=== PATIENT | male | born 2000 | race Caucasian/White ===

== ENCOUNTER 2020-11-06 23:15 | Inpatient (IN) | payer OTHER ==
[2020-11-06] MEDS ORDERED: BISMUTH SUBSALICYLATE 524 MG/30 ML PO PRN (23:49)
[2020-11-06] MEDS ORDERED: guaiFENesin 200 MG/10 ML 10 ML UNIT-DOSE CUPS PO PRN (23:49)
[2020-11-06] MEDS ORDERED: MAG HYDROX/AL HYDROX/SIMETH 30 ML UNIT-DOSE CUP PO PRN (23:49)
[2020-11-06] MEDS ORDERED: ACETAMINOPHEN 325 MG TABLET (FP) PO PRN ×2 (23:49)
[2020-11-06] MEDS ORDERED: ONDANSETRON *ODT* 4 MG TABLET SL PRN (23:49)
[2020-11-06] MEDS ORDERED: MENTHOL/PHENOL 1 EACH UD MM PRN (23:49)
[2020-11-06] MEDS ORDERED: DICYCLOMINE HCL 10 MG CAPSULE PO PRN (23:49)
[2020-11-06] MEDS ORDERED: MAGNESIUM CITRATE 300 ML BOTTLE PO PRN (23:49)
[2020-11-06] MEDS ORDERED: MAGNESIUM HYDROX 2400MG/30ML ORAL SUSPENSION 30 ML CUP PO PRN (23:49)
[2020-11-06] MEDS ORDERED: METHOCARBAMOL 500 MG TABLET PO PRN (23:49)
[2020-11-06] MEDS ORDERED: IBUPROFEN 400 MG TABLET (FP) PO PRN (23:49)
[2020-11-06] MEDS ORDERED: P-EPHED 60MG/TRIPROLIDI 2.5MG TABLET PO PRN (23:49)
[2020-11-06 23:54] VITALS: BMI 19.8
[2020-11-07] MEDS ORDERED: NICOTINE 14 MG/24 HOURS TOPICAL PATCH TD ONE (10:22)
[2020-11-07] MEDS: NICOTINE 14 MG/24 HOURS TOPICAL PATCH TD SCH (10:25)
[2020-11-07] MEDS: PRENATAL VITAMINS W/ FOLIC ACID TABLET (FP) PO SCH (10:25)
[2020-11-07] MEDS: diazePAM 5 MG TABLET PO PRN (14:21)
[2020-11-07] MEDS: diazePAM 5 MG TABLET PO SCH ×2 (17:24→22:28)
[2020-11-07] MEDS: NICOTINE 10 MG CARTRIDGE (INHALER) IH PRN (17:27)
[2020-11-07] MEDS: hydrOXYzine PAMOATE 25 MG CAPSULE (FP) PO PRN (22:29)
[2020-11-07] MEDS: MELATONIN 5 MG TABLETS PO SCH (22:29)
[2020-11-07] MEDS: THIAMINE HCL 100 MG TABLET (FP) PO SCH (22:29)
[2020-11-08] MEDS: diazePAM 5 MG TABLET PO SCH ×4 (05:15→22:10)
[2020-11-08] MEDS: PRENATAL VITAMINS W/ FOLIC ACID TABLET (FP) PO SCH (10:32)
[2020-11-08] MEDS: NICOTINE 10 MG CARTRIDGE (INHALER) IH PRN ×2 (10:33→18:29)
[2020-11-08] MEDS: NICOTINE 14 MG/24 HOURS TOPICAL PATCH TD SCH (10:33)
[2020-11-08] MEDS: diazePAM 5 MG TABLET PO PRN (12:39)
[2020-11-08] MEDS: MELATONIN 5 MG TABLETS PO SCH (22:10)
[2020-11-08] MEDS: THIAMINE HCL 100 MG TABLET (FP) PO SCH (22:10)
[2020-11-08] MEDS: hydrOXYzine PAMOATE 25 MG CAPSULE (FP) PO PRN (22:11)
[2020-11-09] MEDS: diazePAM 5 MG TABLET PO SCH ×2 (06:09→15:21)
[2020-11-09] MEDS: PRENATAL VITAMINS W/ FOLIC ACID TABLET (FP) PO SCH (10:19)
[2020-11-09] MEDS: NICOTINE 14 MG/24 HOURS TOPICAL PATCH TD SCH (10:20)
[2020-11-09 11:35] LABS: HEMATOCRIT 39.3 % (35.4-49); HEMOGLOBIN 13.8 GM/dL (11.7-16.9); MCH 32.1 pg (25.7-33.7); MCHC 35.1 g/dl (32.0-35.9); MEAN CELL VOLUME 91.3 fl (80-96); MEAN PLT VOLUME 8.9 fl (7.5-11.1); PLATELET COUNT 229 10^3/uL (134-434); RDW 13.6 % (11.9-15.9); WHITE BLOOD COUNT 5.9 K/mm3 (4.0-10.0)
[2020-11-09 11:49] LABS: BLOOD UREA NITROGEN 8.7 mg/dL (7-18); CALCIUM 8.3 mg/dL (8.5-10.1)
[2020-11-09 11:50] LABS: ALBUMIN 3.5 g/dl (3.4-5.0)
[2020-11-09 11:52] LABS: CREATININE 0.8 mg/dL (0.55-1.3)
[2020-11-09 11:54] LABS: BILIRUBIN,TOTAL 0.2 mg/dL (0.2-1); TOT PROT 6.4 g/dl (6.4-8.2)
[2020-11-09] MEDS: diazePAM 5 MG TABLET PO PRN (12:30)
[2020-11-09 13:26] VITALS: BP 105/70; TEMP 97.3
[2020-11-09 15:25] VITALS: PULSE 86
[2020-11-10] MEDS ORDERED: diazePAM 5 MG TABLET PO SCH (06:00)
[2020-11-11] MEDS ORDERED: diazePAM 5 MG TABLET PO ONE (06:00)
== END 2020-11-09 15:30 | disposition left against medical advice (07) | DRG 770 ==
LOC: YASAS 23:15 → Y3N 11-07 13:33 → UNDOADMIN 11-07 13:33 → Y3N 11-07 13:35 → UNDOADMIN 11-07 13:44 → UNDODISIN 11-09 15:30
PROVIDERS: ADMIT Allergy & Immunology; ATTEND Allergy & Immunology
PROC: HZ2ZZZZ Detoxification Services for Substance Abuse Treatment (ICD-10-PCS; principal; 2020-11-07)
DX: F10.230 Alcohol dependence with withdrawal, uncomplicated (principal); F12.20 Cannabis dependence, uncomplicated; F17.210 Nicotine dependence, cigarettes, uncomplicated; F19.24 Other psychoactive substance dependence with psychoactive substance-induced mood disorder; Z86.19 Personal history of other infectious and parasitic diseases; Z56.0 Unemployment, unspecified; Z59.0 Homelessness
CPT/HCPCS: 36415; 80053; 85027; 86593; 86780; C9803; U0003; U0005

== ENCOUNTER 2020-12-09 14:34 | Inpatient (IN) | payer OTHER ==
[2020-12-09 17:32] VITALS: BMI 20.9
[2020-12-09] MEDS ORDERED: MAG HYDROX/AL HYDROX/SIMETH 30 ML UNIT-DOSE CUP PO PRN (18:59)
[2020-12-09] MEDS ORDERED: ACETAMINOPHEN 325 MG TABLET (FP) PO PRN ×2 (18:59)
[2020-12-09] MEDS ORDERED: MAGNESIUM CITRATE 300 ML BOTTLE PO PRN (18:59)
[2020-12-09] MEDS ORDERED: MAGNESIUM HYDROX 2400MG/30ML ORAL SUSPENSION 30 ML CUP PO PRN (18:59)
[2020-12-09] MEDS ORDERED: IBUPROFEN 400 MG TABLET (FP) PO PRN (18:59)
[2020-12-09] MEDS ORDERED: BISMUTH SUBSALICYLATE 524 MG/30 ML PO PRN (18:59)
[2020-12-09] MEDS ORDERED: ONDANSETRON *ODT* 4 MG TABLET SL PRN (18:59)
[2020-12-09] MEDS ORDERED: METHOCARBAMOL 500 MG TABLET PO PRN (18:59)
[2020-12-09] MEDS ORDERED: MENTHOL/PHENOL 1 EACH UD MM PRN (18:59)
[2020-12-09] MEDS: diazePAM 5 MG TABLET PO PRN (20:12)
[2020-12-09] MEDS: NICOTINE 10 MG CARTRIDGE (INHALER) IH PRN (20:14)
[2020-12-09] MEDS: MELATONIN 5 MG TABLETS PO SCH (22:49)
[2020-12-09] MEDS: THIAMINE HCL 100 MG TABLET (FP) PO SCH (22:50)
[2020-12-09] MEDS: diazePAM 5 MG TABLET PO SCH (22:50)
[2020-12-10] MEDS: diazePAM 5 MG TABLET PO SCH ×4 (06:29→22:43)
[2020-12-10] MEDS: PRENATAL VITAMINS W/ FOLIC ACID TABLET (FP) PO SCH (10:43)
[2020-12-10 11:11] LABS: ALBUMIN 3.1 g/dl (3.4-5.0); BLOOD UREA NITROGEN 11.2 mg/dL (7-18)
[2020-12-10 11:13] LABS: BILIRUBIN,TOTAL 0.5 mg/dL (0.2-1); TOT PROT 5.8 g/dl (6.4-8.2)
[2020-12-10 11:14] LABS: CREATININE 0.8 mg/dL (0.55-1.3); HEMATOCRIT 37.3 % (35.4-49); HEMOGLOBIN 12.7 GM/dL (11.7-16.9); MCH 31.4 pg (25.7-33.7); MCHC 33.9 g/dl (32.0-35.9); MEAN CELL VOLUME 92.5 fl (80-96); MEAN PLT VOLUME 8.2 fl (7.5-11.1); PLATELET COUNT 221 10^3/uL (134-434); RBC 4.03 M/mm3 (4.00-5.60); RDW 13.7 % (11.9-15.9); WHITE BLOOD COUNT 5.8 K/mm3 (4.0-10.0)
[2020-12-10] MEDS: TENOFOVIR PO SCH (13:47)
[2020-12-10] MEDS: PATIENT'S OWN MEDICATION (NON-FORMULARY) (Dolutegravir Sodium [Tivicay] 50 MG Tablet) PO SCH (13:47)
[2020-12-10] MEDS: EMTRICITABINE PO SCH (13:47)
[2020-12-10] MEDS: [UNRECOGNIZED DRUG - OTHER] PO SCH (13:47)
[2020-12-10] MEDS: diazePAM 5 MG TABLET PO PRN (13:51)
[2020-12-10] MEDS: NICOTINE 10 MG CARTRIDGE (INHALER) IH PRN (18:04)
[2020-12-10] MEDS: THIAMINE HCL 100 MG TABLET (FP) PO SCH (22:43)
[2020-12-10] MEDS: MELATONIN 5 MG TABLETS PO SCH (22:44)
[2020-12-11] MEDS: diazePAM 5 MG TABLET PO SCH ×2 (06:53→13:36)
[2020-12-11] MEDS: EMTRICITABINE PO SCH (10:50)
[2020-12-11] MEDS: TENOFOVIR PO SCH (10:50)
[2020-12-11] MEDS: PATIENT'S OWN MEDICATION (NON-FORMULARY) (Dolutegravir Sodium [Tivicay] 50 MG Tablet) PO SCH (10:50)
[2020-12-11] MEDS: [UNRECOGNIZED DRUG - OTHER] PO SCH (10:50)
[2020-12-11] MEDS: PRENATAL VITAMINS W/ FOLIC ACID TABLET (FP) PO SCH (10:50)
[2020-12-11] MEDS: diazePAM 5 MG TABLET PO PRN ×2 (11:50→16:04)
[2020-12-11] MEDS: NICOTINE 10 MG CARTRIDGE (INHALER) IH PRN (12:10)
[2020-12-11 18:22] VITALS: BP 123/72; PULSE 95; TEMP 98.7
[2020-12-12] MEDS ORDERED: diazePAM 5 MG TABLET PO SCH (06:00)
[2020-12-13] MEDS ORDERED: diazePAM 5 MG TABLET PO ONE (06:00)
== END 2020-12-11 17:48 | disposition left against medical advice (07) | DRG 770 ==
LOC: YASAS 14:34 → Y6N 18:56
PROVIDERS: ADMIT Allergy & Immunology; ATTEND Allergy & Immunology
PROC: HZ2ZZZZ Detoxification Services for Substance Abuse Treatment (ICD-10-PCS; principal; 2020-12-09)
DX: F10.230 Alcohol dependence with withdrawal, uncomplicated (principal); F11.10 Opioid abuse, uncomplicated; F15.10 Other stimulant abuse, uncomplicated; F17.210 Nicotine dependence, cigarettes, uncomplicated; Z11.3 Encounter for screening for infections with a predominantly sexual mode of transmission; Z86.19 Personal history of other infectious and parasitic diseases; Z59.00 Homelessness unspecified
CPT/HCPCS: 36415; 80053; 85027; 86593; 86780; 87491; 87591; C9803; U0003; U0005

== ENCOUNTER 2020-12-17 17:24 | Inpatient (IN) | payer OTHER ==
[2020-12-17 17:56] VITALS: BMI 22.2
[2020-12-17] MEDS ORDERED: MAGNESIUM HYDROX 2400MG/30ML ORAL SUSPENSION 30 ML CUP PO PRN (18:40)
[2020-12-17] MEDS ORDERED: ONDANSETRON *ODT* 4 MG TABLET SL PRN (18:40)
[2020-12-17] MEDS ORDERED: BISMUTH SUBSALICYLATE 524 MG/30 ML PO PRN (18:40)
[2020-12-17] MEDS ORDERED: IBUPROFEN 400 MG TABLET (FP) PO PRN (18:40)
[2020-12-17] MEDS ORDERED: MAG HYDROX/AL HYDROX/SIMETH 30 ML UNIT-DOSE CUP PO PRN (18:40)
[2020-12-17] MEDS ORDERED: MENTHOL/PHENOL 1 EACH UD MM PRN (18:40)
[2020-12-17] MEDS ORDERED: MAGNESIUM CITRATE 300 ML BOTTLE PO PRN (18:40)
[2020-12-17] MEDS ORDERED: ACETAMINOPHEN 325 MG TABLET (FP) PO PRN ×2 (18:40)
[2020-12-17] MEDS ORDERED: METHOCARBAMOL 500 MG TABLET PO PRN (18:40)
[2020-12-17] MEDS ORDERED: NICOTINE POLACRILEX 2 MG GUM BUC PRN (18:42)
[2020-12-17] MEDS: MELATONIN 5 MG TABLETS PO SCH (23:39)
[2020-12-17] MEDS: THIAMINE HCL 100 MG TABLET (FP) PO SCH (23:40)
[2020-12-17] MEDS: hydrOXYzine PAMOATE 25 MG CAPSULE (FP) PO SCH (23:40)
[2020-12-17] MEDS: diazePAM 5 MG TABLET PO SCH (23:41)
[2020-12-18] MEDS: diazePAM 5 MG TABLET PO SCH ×4 (05:40→22:22)
[2020-12-18] MEDS: hydrOXYzine PAMOATE 25 MG CAPSULE (FP) PO SCH ×5 (05:41→22:22)
[2020-12-18] MEDS: DOLUTEGRAVIR SODIUM 50 MG TABLET (NON-FORMULARY) PO SCH (07:03)
[2020-12-18] MEDS ORDERED: DOLUTEGRAVIR SODIUM 50 MG TABLET (NON-FORMULARY) PO SCH (10:00)
[2020-12-18] MEDS ORDERED: EMTRICITABINE 200MG/TENOFOVIR 300MG PO SCH (10:00)
[2020-12-18] MEDS: PRENATAL VITAMINS W/ FOLIC ACID TABLET (FP) PO SCH (11:05)
[2020-12-18] MEDS: EMTRICITABINE 200MG/TENOFOVIR 300MG PO SCH (11:09)
[2020-12-18 11:20] LABS: HEMATOCRIT 36.1 % (35.4-49); HEMOGLOBIN 13.1 GM/dL (11.7-16.9); MCH 33.1 pg (25.7-33.7); MCHC 36.2 g/dl (32.0-35.9); MEAN CELL VOLUME 91.4 fl (80-96); MEAN PLT VOLUME 8.7 fl (7.5-11.1); PLATELET COUNT 220 10^3/uL (134-434); RBC 3.95 M/mm3 (4.00-5.60); RDW 14.4 % (11.9-15.9); WHITE BLOOD COUNT 6.6 K/mm3 (4.0-10.0)
[2020-12-18] MEDS: NICOTINE 10 MG CARTRIDGE (INHALER) IH PRN (11:22)
[2020-12-18 11:29] LABS: ALBUMIN 3.5 g/dl (3.4-5.0); BLOOD UREA NITROGEN 17.4 mg/dL (7-18); CALCIUM 8.5 mg/dL (8.5-10.1)
[2020-12-18 11:31] LABS: CREATININE 0.7 mg/dL (0.55-1.3)
[2020-12-18 11:33] LABS: BILIRUBIN,TOTAL 0.3 mg/dL (0.2-1); TOT PROT 6.4 g/dl (6.4-8.2)
[2020-12-18] MEDS: diazePAM 5 MG TABLET PO PRN ×2 (13:14→20:27)
[2020-12-18] MEDS: MELATONIN 5 MG TABLETS PO SCH (22:22)
[2020-12-18] MEDS: THIAMINE HCL 100 MG TABLET (FP) PO SCH (22:22)
[2020-12-19] MEDS: hydrOXYzine PAMOATE 25 MG CAPSULE (FP) PO SCH ×5 (06:39→22:19)
[2020-12-19] MEDS: diazePAM 5 MG TABLET PO SCH ×3 (06:39→22:20)
[2020-12-19] MEDS: DOLUTEGRAVIR SODIUM 50 MG TABLET (NON-FORMULARY) PO SCH (07:53)
[2020-12-19] MEDS: diazePAM 5 MG TABLET PO PRN ×2 (10:30→18:13)
[2020-12-19] MEDS: PRENATAL VITAMINS W/ FOLIC ACID TABLET (FP) PO SCH (10:30)
[2020-12-19] MEDS: EMTRICITABINE 200MG/TENOFOVIR 300MG PO SCH (10:33)
[2020-12-19] MEDS: NICOTINE 10 MG CARTRIDGE (INHALER) IH PRN (18:12)
[2020-12-19] MEDS: MELATONIN 5 MG TABLETS PO SCH (22:19)
[2020-12-19] MEDS: THIAMINE HCL 100 MG TABLET (FP) PO SCH (22:19)
[2020-12-20] MEDS: hydrOXYzine PAMOATE 25 MG CAPSULE (FP) PO SCH ×2 (05:58→09:02)
[2020-12-20] MEDS ORDERED: diazePAM 5 MG TABLET PO SCH (06:00)
[2020-12-20] MEDS: DOLUTEGRAVIR SODIUM 50 MG TABLET (NON-FORMULARY) PO SCH (08:20)
[2020-12-20] MEDS: diazePAM 5 MG TABLET PO PRN (09:02)
[2020-12-20] MEDS: PRENATAL VITAMINS W/ FOLIC ACID TABLET (FP) PO SCH (09:02)
[2020-12-20 10:20] VITALS: BP 127/79; PULSE 112; TEMP 97.3
[2020-12-20] MEDS: EMTRICITABINE 200MG/TENOFOVIR 300MG PO SCH (10:51)
[2020-12-21] MEDS ORDERED: diazePAM 5 MG TABLET PO ONE (06:00)
== END 2020-12-20 10:55 | disposition home or self-care (01) | DRG 774 ==
LOC: YASAS 17:24 → Y3N 22:22
PROVIDERS: ADMIT Allergy & Immunology; ATTEND Allergy & Immunology
PROC: HZ2ZZZZ Detoxification Services for Substance Abuse Treatment (ICD-10-PCS; principal; 2020-12-17)
DX: F10.230 Alcohol dependence with withdrawal, uncomplicated (principal); F14.20 Cocaine dependence, uncomplicated; F12.20 Cannabis dependence, uncomplicated; F17.210 Nicotine dependence, cigarettes, uncomplicated
CPT/HCPCS: 36415; 80053; 85027; 86593; 86780; C9803; Q0162; U0003; U0005

== ENCOUNTER 2020-12-21 07:24 | Inpatient (IN) | payer OTHER ==
[2020-12-21 07:38] VITALS: BMI 21.8
[2020-12-21] MEDS ORDERED: ONDANSETRON *ODT* 4 MG TABLET SL PRN (10:34)
[2020-12-21] MEDS ORDERED: METHOCARBAMOL 500 MG TABLET PO PRN (10:34)
[2020-12-21] MEDS ORDERED: NICOTINE 10 MG CARTRIDGE (INHALER) IH PRN (10:34)
[2020-12-21] MEDS ORDERED: ACETAMINOPHEN 325 MG TABLET (FP) PO PRN ×2 (10:34)
[2020-12-21] MEDS ORDERED: MAGNESIUM CITRATE 300 ML BOTTLE PO PRN (10:34)
[2020-12-21] MEDS ORDERED: MAGNESIUM HYDROX 2400MG/30ML ORAL SUSPENSION 30 ML CUP PO PRN (10:34)
[2020-12-21] MEDS ORDERED: diazePAM 5 MG TABLET PO PRN (10:34)
[2020-12-21] MEDS ORDERED: IBUPROFEN 400 MG TABLET (FP) PO PRN (10:34)
[2020-12-21] MEDS ORDERED: MENTHOL/PHENOL 1 EACH UD MM PRN (10:34)
[2020-12-21] MEDS ORDERED: BISMUTH SUBSALICYLATE 524 MG/30 ML PO PRN (10:34)
[2020-12-21] MEDS ORDERED: MAG HYDROX/AL HYDROX/SIMETH 30 ML UNIT-DOSE CUP PO PRN (10:34)
[2020-12-21] MEDS ORDERED: diazePAM 5 MG TABLET PO SCH (11:00)
[2020-12-21 15:07] LABS: HIV INTERPRETATION NEGATIVE (NEGATIVE)
[2020-12-21] MEDS: hydrOXYzine PAMOATE 25 MG CAPSULE (FP) PO SCH ×3 (17:33→21:48)
[2020-12-21] MEDS: NICOTINE 14 MG/24 HOURS TOPICAL PATCH TD SCH (17:34)
[2020-12-21] MEDS: PRENATAL VITAMINS W/ FOLIC ACID TABLET (FP) PO SCH (17:35)
[2020-12-21] MEDS ORDERED: THIAMINE HCL 100 MG TABLET (FP) PO SCH (22:00)
[2020-12-21] MEDS ORDERED: MELATONIN 5 MG TABLETS PO SCH (22:00)
[2020-12-22] MEDS ORDERED: PT OWN MED DRAWER 7, Y5N ONE (03:47)
[2020-12-22 06:47] VITALS: BP 126/73; PULSE 68; TEMP 97.1
[2020-12-22] MEDS: hydrOXYzine PAMOATE 25 MG CAPSULE (FP) PO SCH ×2 (07:44→10:15)
[2020-12-22] MEDS ORDERED: EMTRICITABINE 200MG/TENOFOVIR 300MG PO SCH (08:00)
[2020-12-22] MEDS ORDERED: DOLUTEGRAVIR SODIUM 50 MG TABLET (NON-FORMULARY) PO SCH (08:00)
[2020-12-22] MEDS: NICOTINE 14 MG/24 HOURS TOPICAL PATCH TD SCH (10:14)
[2020-12-22] MEDS: PRENATAL VITAMINS W/ FOLIC ACID TABLET (FP) PO SCH (10:14)
[2020-12-23] MEDS ORDERED: diazePAM 5 MG TABLET PO SCH (06:00)
[2020-12-24] MEDS ORDERED: diazePAM 5 MG TABLET PO SCH (06:00)
[2020-12-25] MEDS ORDERED: diazePAM 5 MG TABLET PO ONE (06:00)
== END 2020-12-22 13:35 | disposition left against medical advice (07) | DRG 770 ==
LOC: YASAS 07:24 → Y3E 15:37
PROVIDERS: ADMIT Allergy & Immunology; ATTEND Allergy & Immunology
PROC: HZ42ZZZ Group Counseling for Substance Abuse Treatment, Cognitive-Behavioral (ICD-10-PCS; principal; 2020-12-21)
DX: F10.20 Alcohol dependence, uncomplicated (principal); F14.20 Cocaine dependence, uncomplicated; F12.20 Cannabis dependence, uncomplicated; F17.210 Nicotine dependence, cigarettes, uncomplicated; F31.9 Bipolar disorder, unspecified; F19.24 Other psychoactive substance dependence with psychoactive substance-induced mood disorder; F41.1 Generalized anxiety disorder; Z20.6 Contact with and (suspected) exposure to human immunodeficiency virus [HIV]; Z86.19 Personal history of other infectious and parasitic diseases; Z59.00 Homelessness unspecified
CPT/HCPCS: 36415; 87389; C9803; U0003; U0005